=== PATIENT | male | born 1945 | race Caucasian/White ===

== ENCOUNTER 2016-10-14 10:21 | Inpatient (IN) | payer OTHER ==
[~2016-10-14] VITALS: Ht 165.1 cm; Wt 68.6 kg
[2016-10-14 11:17] LABS: RED BLOOD COUNT 4.17 M/UL (4.20-5.50); WHITE BLOOD COUNT 15.2 K/UL (4.5-11.0)
[2016-10-14 11:34] LABS: BUN/CREATININE RATIO 17 (0-10)
[2016-10-14] MEDS ORDERED: METHADONE HCL T10 MG PO (13:50)
[2016-10-14] MEDS ORDERED: METHADONE HCL TA5 MG PO (13:50)
[2016-10-14] MEDS ORDERED: ZANTAC150 MG PO (13:52)
[2016-10-14] MEDS ORDERED: HYDRALAZINE HCL25 MG PO (13:52)
[2016-10-14] MEDS ORDERED: NIFEDIPINE ER90 MG PO (13:53)
[2016-10-14] MEDS ORDERED: PLAVIX 75 MG TA75 MG PO (13:54)
[2016-10-14] MEDS ORDERED: LOPRESSOR50 MG PO (13:54)
[2016-10-14] MEDS ORDERED: PAXIL 20 MG TAB20 MG PO (13:55)
[2016-10-14] MEDS ORDERED: ASPIR 8181 MG PO (13:56)
[2016-10-14] MEDS ORDERED: VITAMIN B-121000 MC3 PO (13:57)
[2016-10-14] MEDS ORDERED: FLOMAX 0.4 MG0.4 MG PO (13:57)
[2016-10-14] MEDS ORDERED: COLACE 100MG C100 MG PO (13:58)
[2016-10-14] MEDS ORDERED: FINASTERIDE5 MG PO (13:58)
[2016-10-14] MEDS ORDERED: NAPROXEN500 MG PO (13:59)
[2016-10-14] MEDS ORDERED: IPRATROPIU0.2 MG/1 M INH (14:00)
[2016-10-14] MEDS ORDERED: PROVENTIL HFA 61 INH INH (14:01)
[2016-10-14 23:25] LABS: BUN/CREATININE RATIO 25 (0-10)
[2016-10-15 04:35] LABS: HEMOGLOBIN 11.3 gm/dl (14.0-17.5)
[2016-10-15 04:36] LABS: RED BLOOD COUNT 3.61 M/UL (4.20-5.50)
[2016-10-15 05:10] LABS: BUN/CREATININE RATIO 26 (0-10)
[2016-10-16 04:50] LABS: RED BLOOD COUNT 3.22 M/UL (4.20-5.50); WHITE BLOOD COUNT 11.5 K/UL (4.5-11.0)
[2016-10-16 05:14] LABS: BUN/CREATININE RATIO 19 (0-10)
[2016-10-16] MEDS ORDERED: TESSALON PERLE100 MG PO (14:12)
[2016-10-16] MEDS ORDERED: VIBRAMYCIN100 MG PO (14:15)
[2016-10-16] MEDS ORDERED: ZESTRIL5 MG PO (14:18)
[2016-10-16] MEDS ORDERED: NITROSTAT 0.40.4 MG SL (14:23)
== END 2016-10-16 15:48 | disposition home or self-care (01) | DRG 247 ==
LOC: ER1 10:21 → ZEROF 12:30 → PROG CARE 12:30 → ER1 12:30 → PROG CARE 18:30 → ZEROF 22:51 → PROG CARE 10-16 15:48
PROVIDERS: Emergency Medicine; ADMIT Internal Medicine
PROC: 027035Z Dilation of Coronary Artery, One Artery with Two Drug-eluting Intraluminal Devices, Percutaneous Approach (ICD-10-PCS; principal; 2016-10-15)
PROC: B240ZZ3 Ultrasonography of Single Coronary Artery, Intravascular (ICD-10-PCS; 2016-10-15)
PROC: 4A023N7 Measurement of Cardiac Sampling and Pressure, Left Heart, Percutaneous Approach (ICD-10-PCS; 2016-10-15)
PROC: B2111ZZ Fluoroscopy of Multiple Coronary Arteries using Low Osmolar Contrast (ICD-10-PCS; 2016-10-15)
DX: I21.4 Non-ST elevation (NSTEMI) myocardial infarction (principal); J44.0 Chronic obstructive pulmonary disease with (acute) lower respiratory infection; E87.1 Hypo-osmolality and hyponatremia; J44.1 Chronic obstructive pulmonary disease with (acute) exacerbation; I25.110 Atherosclerotic heart disease of native coronary artery with unstable angina pectoris; J20.9 Acute bronchitis, unspecified; I70.202 Unspecified atherosclerosis of native arteries of extremities, left leg; I10 Essential (primary) hypertension; E78.5 Hyperlipidemia, unspecified; I45.81 Long QT syndrome; J98.6 Disorders of diaphragm; N40.0 Benign prostatic hyperplasia without lower urinary tract symptoms; F10.10 Alcohol abuse, uncomplicated; D64.9 Anemia, unspecified; K57.90 Diverticulosis of intestine, part unspecified, without perforation or abscess without bleeding; K21.9 Gastro-esophageal reflux disease without esophagitis; M19.90 Unspecified osteoarthritis, unspecified site; G89.4 Chronic pain syndrome; F17.210 Nicotine dependence, cigarettes, uncomplicated; F41.1 Generalized anxiety disorder; I25.2 Old myocardial infarction; Z95.5 Presence of coronary angioplasty implant and graft; Z98.62 Peripheral vascular angioplasty status; Z79.02 Long term (current) use of antithrombotics/antiplatelets; Z79.891 Long term (current) use of opiate analgesic; Z79.82 Long term (current) use of aspirin; Z79.1 Long term (current) use of non-steroidal anti-inflammatories (NSAID); Z79.899 Other long term (current) drug therapy; Z96.653 Presence of artificial knee joint, bilateral; Z98.1 Arthrodesis status; Z90.49 Acquired absence of other specified parts of digestive tract; Z98.890 Other specified postprocedural states; Z82.49 Family history of ischemic heart disease and other diseases of the circulatory system; Z82.5 Family history of asthma and other chronic lower respiratory diseases
CPT/HCPCS: ECHO; 36415; 36600; 71010; 80048; 80053; 80061; 82550; 82553; 82803; 83735; 83874; 84484; 85025; 85347; 85610; 85730; 87070; 87205; 92978; 93005; 93306; 94640; 94664; 96365; 99285; C1725; C1753; C1769; C1874; C1887; C9600; J0153; J0583; J0696; J1644; J1956; J2250; J2550; J3010; J7030; J7050; Q9963

== ENCOUNTER → 2016-10-22 | Outpatient (CLI) | payer OTHER ==
[~2016-10-22] MED LIST: ASPIR 8181 MG PO; COLACE 100MG C100 MG PO; FINASTERIDE5 MG PO; FLOMAX 0.4 MG0.4 MG PO; HYDRALAZINE HCL25 MG PO; IPRATROPIU0.2 MG/1 M INH; LOPRESSOR50 MG PO; METHADONE HCL T10 MG PO; METHADONE HCL TA5 MG PO; NAPROXEN500 MG PO; NIFEDIPINE ER90 MG PO; NITROSTAT 0.40.4 MG SL; PAXIL 20 MG TAB20 MG PO; PLAVIX 75 MG TA75 MG PO; PROVENTIL HFA 61 INH INH; TESSALON PERLE100 MG PO; VIBRAMYCIN100 MG PO; VITAMIN B-121000 MC3 PO; ZANTAC150 MG PO; ZESTRIL5 MG PO
== END ==
LOC: LAB 15:45
PROVIDERS: Internal Medicine
DX: T59.2X1A Toxic effect of formaldehyde, accidental (unintentional), initial encounter (principal)
CPT/HCPCS: 36415; 80048

== ENCOUNTER 2016-12-18 09:55 | Emergency (ER) | payer OTHER ==
[2016-12-18 10:43] LABS: HEMOGLOBIN 12.5 gm/dl (14.0-17.5); RED BLOOD COUNT 4.06 M/UL (4.20-5.50); WHITE BLOOD COUNT 10.2 K/UL (4.5-11.0)
[2016-12-18 11:10] LABS: BUN/CREATININE RATIO 13 (0-10)
== END 2016-12-18 15:29 | disposition home or self-care (01) ==
LOC: ER1 09:55
PROVIDERS: Family Medicine
DX: J44.1 Chronic obstructive pulmonary disease with (acute) exacerbation (principal); J20.9 Acute bronchitis, unspecified; I11.9 Hypertensive heart disease without heart failure; Z95.5 Presence of coronary angioplasty implant and graft; Z79.82 Long term (current) use of aspirin; Z79.899 Other long term (current) drug therapy; Z87.891 Personal history of nicotine dependence
CPT/HCPCS: 36415; 71010; 80053; 82550; 82553; 82803; 83874; 84484; 85025; 93005; 94664; 96374; 99284; J2930